=== PATIENT | female | born 1945 | race Caucasian/White ===

== ENCOUNTER 2024-03-13 14:42 | Inpatient (IN) | payer OTHER, MEDICAID ==
[2024-03-13] VITALS (7 sets, daily range): BP systolic 77–98; BP diastolic 41–58; PULSE 70–80; RESP 18; TEMP 98–98.1; O2SAT 95–96
[~2024-03-13] VITALS: Ht 154.9 cm; Wt 38.6 kg
[2024-03-13] MEDS: cefTRIAXone 1,000 MG in DEXT 5% MINI-BAG PLUS 50 ML IV ONE (14:50)
[2024-03-13] MEDS: NACL 0.9% 1,000 ML IV SCH ×2 (15:19→21:14)
[2024-03-13] MEDS ORDERED: cefTRIAXone 1,000 MG VIAL ONE (15:21)
[2024-03-13 15:42] LABS: BASOPHILS # (AUTO) 0.1 K/uL (0.00-0.22); BASOPHILS % (AUTO) 0.8 % (0.0-2.0); EOSINOPHILS # (AUTO) 0.3 K/uL (0-0.4); HEMATOCRIT 38.6 % (36-48); LYMPHOCYTES # (AUTO) 1.6 K/uL (2.5-16.5); LYMPHOCYTES % (AUTO) 23.3 % (20.5-51.1); MEAN CORPUSCULAR HEMOGLOBIN 31 pg (27-31); MEAN CORPUSCULAR HGB CONC 34 g/dL (33-37); MEAN CORPUSCULAR VOLUME 91.6 fL (80-94); MONOCYTES # (AUTO) 0.4 K/uL (0.8-1.0); MONOCYTES % (AUTO) 6.4 % (1.7-9.3); NEUTROPHILS # (AUTO) 4.5 K/uL (1.8-7.7); NEUTROPHILS % (AUTO) 65.5 % (42.2-75.2); PLATELET COUNT (AUTO) 313 K/uL (140-450); RED BLOOD CELL COUNT(AUTO) 4.21 MIL/uL (4.20-5.40); RED CELL DISTRIBUTION WIDTH 14.5 % (11.6-13.7); WHITE BLOOD COUNT (AUTO) 6.8 K/uL (4.8-10.8)
[2024-03-13 15:55] LABS: ANION GAP 11.6 (8-16); CALCIUM 8.9 mg/dL (8.5-10.1); CARBON DIOXIDE 28.8 mmol/L (21-32); CHLORIDE 103 mmol/L (98-107); CREATININE 0.6 mg/dL (0.6-1.3); GLUCOSE 105 mg/dL (74-106); POTASSIUM 4.4 mmol/L (3.5-5.1); SODIUM SERUM 139 mmol/L (136-145); UREA NITROGEN, BLOOD 26 mg/dL (7-18)
[2024-03-13 16:25] LABS: FLU A ANTIGEN negative (NEGATIVE); FLU B ANTIGEN NEGATIVE (NEGATIVE)
[2024-03-13] MEDS: NACL 0.9% 1,000 ML IV ONE (17:01)
[2024-03-13 17:58] LABS: BILIRUBIN,URINE NEGATIVE (NEGATIVE); BLOOD, URINE 1+ (NEGATIVE); COLOR,URINE YELLOW (YELLOW); LEUKOCYTE ESTERASE ,URINE 3+ (NEGATIVE); NITRITE, URINE NEGATIVE (NEGATIVE); PH,URINE 7.5 (5.0-9.0); PROTEIN,URINE 1+ (NEGATIVE); UGLUCOSE NEGATIVE (NEGATIVE); UROBILINOGEN,URINE 0.2 EU/dL (0.2 - 1)
[2024-03-13 18:00] LABS: APPEARANCE,URINE CLOUDY (CLEAR)
[2024-03-13 18:10] LABS: BACTERIA,URINE 10-30 (MOD) /HPF (None Seen); MUCUS,URINE 1+ /LPF (None Seen); SQUAMOUS EPITHELIAL CELL,UR 0-3 (FEW) /LPF (0-3 (FEW))
[2024-03-13] MEDS ORDERED: SIMV10TA92 PO (20:19)
[2024-03-13] MEDS ORDERED: POLY17PD65 PO (20:19)
[2024-03-13] MEDS ORDERED: DOCU-299 PO (20:19)
[2024-03-13] MEDS ORDERED: FERR324T11 PO (20:19)
[2024-03-13] MEDS ORDERED: MIRT7.5T14 PO (20:19)
[2024-03-13] MEDS ORDERED: METF-346 PO (20:19)
[2024-03-13] MEDS ORDERED: TRAM50TA3 PO (20:19)
[2024-03-13] MEDS ORDERED: OFLOS (20:19)
[2024-03-13] MEDS ORDERED: GABA-636 PO (20:19)
[2024-03-13] MEDS ORDERED: POTA20TA49 PO (20:19)
[2024-03-13] MEDS: NACL 0.9% 1,000 ML IV STA (22:01)
[2024-03-14] VITALS: BP 100/62; PULSE 66; RESP 18; TEMP 98; O2SAT 96
[2024-03-14 04:00] VITALS: BP 125/65; PULSE 66; PULSE 67; RESP 18; TEMP 98.3; O2SAT 96
[2024-03-14 07:13] LABS: BASOPHILS % (AUTO) 0.7 % (0.0-2.0); EOSINOPHILS # (AUTO) 0.2 K/uL (0-0.4); EOSINOPHILS % (AUTO) 3.6 % (0.0-4.0); HEMATOCRIT 38.1 % (36-48); HEMOGLOBIN 12.5 g/dL (12.0-16.0); LYMPHOCYTES # (AUTO) 1.3 K/uL (2.5-16.5); LYMPHOCYTES % (AUTO) 27.3 % (20.5-51.1); MEAN CORPUSCULAR HEMOGLOBIN 31 pg (27-31); MEAN CORPUSCULAR HGB CONC 33 g/dL (33-37); MEAN CORPUSCULAR VOLUME 92.7 fL (80-94); MONOCYTES # (AUTO) 0.3 K/uL (0.8-1.0); MONOCYTES % (AUTO) 5.5 % (1.7-9.3); NEUTROPHILS % (AUTO) 62.9 % (42.2-75.2); PLATELET COUNT (AUTO) 298 K/uL (140-450); RED BLOOD CELL COUNT(AUTO) 4.11 MIL/uL (4.20-5.40); RED CELL DISTRIBUTION WIDTH 14.1 % (11.6-13.7); WHITE BLOOD COUNT (AUTO) 4.8 K/uL (4.8-10.8)
[2024-03-14 07:16] LABS: ANION GAP 12.5 (8-16); CALCIUM 8.2 mg/dL (8.5-10.1); CHLORIDE 107 mmol/L (98-107); CREATININE 0.6 mg/dL (0.6-1.3); GLUCOSE 93 mg/dL (74-106); POTASSIUM 3.5 mmol/L (3.5-5.1); SODIUM SERUM 142 mmol/L (136-145); UREA NITROGEN, BLOOD 17 mg/dL (7-18)
[2024-03-14 08:00] VITALS: BP 139/88; PULSE 84; PULSE 90; RESP 16; TEMP 97.8; O2SAT 97
[2024-03-14 12:00] VITALS: BP 94/55; PULSE 79; PULSE 80; RESP 20; TEMP 97; O2SAT 95
[2024-03-14] MEDS: GABAPENTIN 100 MG CAP PO SCH (12:18)
[2024-03-14] MEDS: ACETAMINOPHEN 650 MG/20.3 ML UDC PO PRN (12:18)
[2024-03-14] MEDS ORDERED: HYDROcodone/APAP 7.5/325 MG 1 TAB PO PRN (13:10)
[2024-03-14] MEDS ORDERED: traMADol 50 MG TAB PO SCH (13:10)
[2024-03-14] MEDS ORDERED: ACETAMINOPHEN 325 MG TAB PO PRN (13:10)
[2024-03-14] MEDS ORDERED: NACL 0.9% 1,000 ML IV SCH (13:10)
[2024-03-14] MEDS ORDERED: ONDANSETRON 4 MG/2 ML VIAL IVP PRN (13:10)
[2024-03-14 14:31] LABS: INR 0.97 (0.8-1.2); PARTIAL THROMBOPLASTIN TIME 27.2 secs (22-35.6); PROTHROMBIN TIME 10.2 secs (10.8-13.4)
[2024-03-14 14:38] LABS: LACTIC ACID 2.4 mmol/L (0.4-2.0)
[2024-03-14 14:44] LABS: CHOL/HDL RATIO 3.3 (1-4.5); FREE T4 (FREE THYROXINE) 0.94 ng/dL (0.76-1.46); MAGNESIUM 1.7 mg/dL (1.8-2.4); PHOSPHORUS 3.5 mg/dL (2.5-4.9); THYROID STIMULATING HORMONE 1.71 uIU/mL (0.34-3.74)
[2024-03-14] MEDS: MAG SULF 2000 MG/WATER PREMIX 50 ML IV SCH (15:40)
[2024-03-14 16:00] VITALS: BP 103/57; PULSE 100; PULSE 89; RESP 16; TEMP 97.8; O2SAT 95
[2024-03-14] MEDS ORDERED: GABAPENTIN 100 MG CAP PO SCH (17:00)
[2024-03-14 20:00] VITALS: BP_SYST 94; BP_SYST 96; BP_DIAS 51; BP_DIAS 55; PULSE 75; PULSE 83; RESP 17; RESP 18; RESP 80; TEMP 97.4; TEMP 98.4; O2SAT 96
[2024-03-14] MEDS: SIMVASTATIN 10 MG TAB PO SCH (20:55)
[2024-03-14] MEDS: MIRTAZAPINE 15 MG TAB PO SCH (20:55)
[2024-03-14] MEDS: DOCUSATE SODIUM 100 MG GELCAP PO SCH (20:56)
[2024-03-14] MEDS ORDERED: DOCUSATE SODIUM 100 MG GELCAP PO SCH (21:00)
[2024-03-14] MEDS ORDERED: NON-FORMULARY ITEM (Potassium Chloride 1 TAB) PO SCH (21:00)
[2024-03-14] MEDS ORDERED: MAG SULF 2000 MG/WATER PREMIX 50 ML IV PRN (21:45)
[2024-03-15] VITALS: BP 94/55; PULSE 83; RESP 18; TEMP 98.4; O2SAT 96
[2024-03-15 04:00] VITALS: BP 101/49; PULSE 72; RESP 17; TEMP 97.3; O2SAT 96
[2024-03-15 05:46] VITALS: PULSE 72
[2024-03-15 08:00] VITALS: BP 98/48; PULSE 61; PULSE 63; PULSE 65; RESP 18; TEMP 97.8; O2SAT 96
[2024-03-15] MEDS: PANTOPRAZOLE 40 MG INJ VIAL IVP SCH (08:29)
[2024-03-15] MEDS: metFORMIN 500 MG TAB PO SCH (09:17)
[2024-03-15] MEDS: FERROUS GLUCONATE 324 MG TAB PO SCH (09:20)
[2024-03-15] MEDS: POLYETHYLENE GLYCOL 17 GM/PKT PO SCH (09:21)
[2024-03-15] MEDS: DOCUSATE 100 MG/10 ML UDC PO SCH (09:21)
[2024-03-15 11:51] LABS: BASOPHILS # (AUTO) 0.1 K/uL (0.00-0.22); BASOPHILS % (AUTO) 1.2 % (0.0-2.0); EOSINOPHILS # (AUTO) 0.2 K/uL (0-0.4); EOSINOPHILS % (AUTO) 4.8 % (0.0-4.0); HEMATOCRIT 32.6 % (36-48); LYMPHOCYTES # (AUTO) 1.7 K/uL (2.5-16.5); LYMPHOCYTES % (AUTO) 33.1 % (20.5-51.1); MEAN CORPUSCULAR HEMOGLOBIN 31 pg (27-31); MEAN CORPUSCULAR HGB CONC 34 g/dL (33-37); MEAN CORPUSCULAR VOLUME 91.4 fL (80-94); MONOCYTES # (AUTO) 0.4 K/uL (0.8-1.0); NEUTROPHILS # (AUTO) 2.6 K/uL (1.8-7.7); NEUTROPHILS % (AUTO) 52.9 % (42.2-75.2); PLATELET COUNT (AUTO) 273 K/uL (140-450); RED BLOOD CELL COUNT(AUTO) 3.56 MIL/uL (4.20-5.40)
[2024-03-15 12:03] LABS: ANION GAP 9.8 (8-16); CALCIUM 7.8 mg/dL (8.5-10.1); CARBON DIOXIDE 27.7 mmol/L (21-32); CHLORIDE 107 mmol/L (98-107); CREATININE 0.6 mg/dL (0.6-1.3); GLUCOSE 82 mg/dL (74-106); POTASSIUM 3.5 mmol/L (3.5-5.1); SODIUM SERUM 141 mmol/L (136-145); UREA NITROGEN, BLOOD 13 mg/dL (7-18)
[2024-03-15 16:00] VITALS: BP 93/47; PULSE 58; RESP 18; TEMP 98.9; O2SAT 96
[2024-03-15 20:00] VITALS: BP 110/61; PULSE 57; RESP 16; TEMP 97.5; O2SAT 96; O2SAT 97
[2024-03-16 04:00] VITALS: BP 102/55; PULSE 60; RESP 16; TEMP 97.1; O2SAT 96
[2024-03-16 06:42] LABS: BASOPHILS % (AUTO) 0.9 % (0.0-2.0); EOSINOPHILS # (AUTO) 0.3 K/uL (0-0.4); EOSINOPHILS % (AUTO) 5.5 % (0.0-4.0); HEMATOCRIT 33.6 % (36-48); HEMOGLOBIN 11.4 g/dL (12.0-16.0); LYMPHOCYTES # (AUTO) 1.6 K/uL (2.5-16.5); LYMPHOCYTES % (AUTO) 31.2 % (20.5-51.1); MEAN CORPUSCULAR HEMOGLOBIN 31 pg (27-31); MEAN CORPUSCULAR HGB CONC 34 g/dL (33-37); MEAN CORPUSCULAR VOLUME 91.7 fL (80-94); MONOCYTES # (AUTO) 0.4 K/uL (0.8-1.0); MONOCYTES % (AUTO) 8.3 % (1.7-9.3); NEUTROPHILS # (AUTO) 2.7 K/uL (1.8-7.7); NEUTROPHILS % (AUTO) 54.1 % (42.2-75.2); PLATELET COUNT (AUTO) 269 K/uL (140-450); RED BLOOD CELL COUNT(AUTO) 3.66 MIL/uL (4.20-5.40); RED CELL DISTRIBUTION WIDTH 13.8 % (11.6-13.7); WHITE BLOOD COUNT (AUTO) 5.1 K/uL (4.8-10.8)
[2024-03-16 07:00] LABS: CARBON DIOXIDE 23.2 mmol/L (21-32); CHLORIDE 107 mmol/L (98-107); CREATININE 0.7 mg/dL (0.6-1.3); GLUCOSE 79 mg/dL (74-106); POTASSIUM 3.2 mmol/L (3.5-5.1); SODIUM SERUM 141 mmol/L (136-145); UREA NITROGEN, BLOOD 18 mg/dL (7-18)
[2024-03-16 07:03] LABS: MAGNESIUM 1.8 mg/dL (1.8-2.4); PHOSPHORUS 3.6 mg/dL (2.5-4.9)
[2024-03-16 08:00] VITALS: PULSE 60; RESP 18; TEMP 98.2; O2SAT 98
[2024-03-16] MEDS: POTASSIUM CHLORIDE 10 MEQ TABER PO PRN (08:37)
[2024-03-16 12:59] VITALS: BP 112/69; PULSE 63; RESP 18; TEMP 98.2; O2SAT 99
[2024-03-16] MEDS ORDERED: ROC2I IV (14:34)
[2024-03-16 15:04] VITALS: BP 112/69; PULSE 63; RESP 18; TEMP 98.1
[2024-03-16 18:13] VITALS: BP 112/69; PULSE 63; RESP 18; TEMP 98.1
== END 2024-03-16 19:13 | DRG 640 ==
LOC: MED 14:42 → MTU 19:34
DX: E86.0 Dehydration (principal); G93.41 Metabolic encephalopathy; N39.0 Urinary tract infection, site not specified; F03.93 Unspecified dementia, unspecified severity, with mood disturbance; Z68.1 Body mass index [BMI] 19.9 or less, adult; E83.42 Hypomagnesemia; Z20.822 Contact with and (suspected) exposure to COVID-19; E78.5 Hyperlipidemia, unspecified; E11.40 Type 2 diabetes mellitus with diabetic neuropathy, unspecified; D50.9 Iron deficiency anemia, unspecified; K21.9 Gastro-esophageal reflux disease without esophagitis; Z79.899 Other long term (current) drug therapy; R25.1 Tremor, unspecified
CPT/HCPCS: 36415; 71045; 80048; 81001; 82140; 82150; 83036; 83605; 83690; 83735; 83880; 84100; 84439; 84443; 84484; 85025; 85610; 85730; 87040; 87081; 87086; 92526; 93005; 96361; 96365; 97163-GP; 97530; 99285; C9113; J0696; J3475; J7060